=== PATIENT | female | born 1990 | race Caucasian/White ===

== ENCOUNTER 2018-12-20 20:22 | Emergency (ER) | payer SELFPAY ==
[~2018-12-20] VITALS: Ht 165.1 cm; Wt 72.4 kg
[2018-12-20 20:37] VITALS: BP 115/72
[2018-12-20] MEDS ORDERED: DIAZEPAM 5 MG TABLET ONE (20:59)
[2018-12-20] MEDS ORDERED: KETOROLAC 30 MG/1 ML ONE (20:59)
[2018-12-20] MEDS ORDERED: KETOROLAC 30 MG/1 ML IM ONE (21:00)
[2018-12-20] MEDS ORDERED: DIAZEPAM 5 MG TABLET PO ONE (21:00)
== END 2018-12-20 22:42 | disposition home or self-care (01) ==
LOC: ED 22:15
DX: M62.830 Muscle spasm of back (principal)
CPT/HCPCS: 72050; 96372; 99283; J1885

== ENCOUNTER 2019-02-14 09:07 | Emergency (ER) | payer OTHER ==
[~2019-02-14] VITALS: Ht 177.8 cm; Wt 100.0 kg
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
--- NOTE | 2019-02-14 09:40 | NUR ---
REMAINS LETHARGIC SATS TO 100 ON RA
--- NOTE | 2019-02-14 11:18 | NUR ---
RECEIVED REPORT FROM DOMI COKER. ASSUMED CARE OF PATIENT. PT SLEEPING, VSS. NO ACUTE DISTRESS.
--- NOTE | 2019-02-14 12:38 | NUR ---
PT AROUSABLE TO VOICE, FALLS BACK TO SLEEP WITHIN 3-5 SEC AND HAS TO BE REAROUSED. VSS. WARM BLANKET PROVIDED.
--- NOTE | 2019-02-14 12:43 | NUR ---
BREAK RN FOR PRIMARY RN HAILY. CARE ASSUMED. PT SLEEPING, RESP REGULAR, EVEN, UNLABORED, EQUAL CHEST RISE, PULSE OX 99% RA. FALL PRECAUTIONS IN PLACE. SIDE RAILS UPX2. VSS. CALL LIGHT IN REACH.
--- NOTE | 2019-02-14 13:17 | NUR ---
BREAK RN. REPORT AND CARE TO PRIMARY DOMI JOHANSEN AT THIS TIME.
[2019-02-14 14:35] VITALS: BP 116/77
--- NOTE | 2019-02-14 14:36 | NUR ---
PT CONTINUES TO SLEEP, IS AROUSABLE TO LIGHT TACTILE STIMULATION BUT FALLS BACK TO SLEEP WITHIN 3-5 SECS. VSS. NO ACUTE DISTRESS.
== END 2019-02-14 15:40 | disposition left against medical advice (07) ==
LOC: ED 12:52
DX: F11.129 Opioid abuse with intoxication, unspecified (principal); F17.200 Nicotine dependence, unspecified, uncomplicated
CPT/HCPCS: 99283

== ENCOUNTER 2019-06-01 10:17 | Emergency (ER) | payer OTHER ==
[~2019-06-01] VITALS: Ht 165.1 cm; Wt 71.3 kg
[2019-06-01 10:23] VITALS: BP 130/79
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
--- NOTE | 2019-06-01 11:50 | NUR ---
PT AMBULATED TO BR WITHOUT DIFFICULTY. INSTRUCTED ON CLEAN CATCH URINE SAMPLE.
--- NOTE | 2019-06-01 11:57 | NUR ---
AMBULATORY TO & FROM [facility] W/OUT INCIDENT, ACCOMPANIED BY THIS RN, PT'S GAIT STEADY. SMALL AMOUNT CLOUDY YELLOW URINE SPECIMEN PROVIDED BY PT. PT C/O FREQUENCY, VOIDING SMALL AMOUNTS. DENIED URINARY PAIN/BURNING. SPECIMEN WILL BE WALKED TO LAB.
[2019-06-01 12:14] LABS: HCG UR SG 1.028 (1.003-1.030)
[2019-06-01 12:18] LABS: MICROSCOPIC INDICATED
[2019-06-01 12:19] LABS: CULTURE INDICATED? YES
--- NOTE | 2019-06-01 12:30 | NUR ---
GUY/TIFF TEAM AT .
--- NOTE | 2019-06-01 13:21 | NUR ---
D/C INSTRUCTIONS PROVIDED TO PT. PT TO GO FOR SART EXAM WITH [facility].
--- NOTE | 2019-06-01 13:38 | NUR ---
SART TEAM NOT ABLE TO SEE PATIENT UNTIL 2:30PM. [facility] TO TAKE PATIENT AT THAT TIME.
== END 2019-06-01 14:04 | disposition home or self-care (01) ==
LOC: ED 10:59
DX: N30.00 Acute cystitis without hematuria (principal); T76.21XA Adult sexual abuse, suspected, initial encounter; F11.20 Opioid dependence, uncomplicated; F17.200 Nicotine dependence, unspecified, uncomplicated; J45.909 Unspecified asthma, uncomplicated
CPT/HCPCS: 81001; 81025; 87086; 99283

== ENCOUNTER 2019-09-25 23:25 | Emergency (ER) | payer SELFPAY ==
[~2019-09-25] VITALS: Ht 165.1 cm; Wt 70.7 kg
[2019-09-25 23:27] VITALS: BP 141/100
[2019-09-25] MEDS ORDERED: LIDOCAINE 1%-EPI 1:100K, 20ML ONE (23:56)
[2019-09-26] MEDS ORDERED: LIDOCAINE 1%-EPI 1:100K, 20ML SQ ONE
--- NOTE | 2019-09-26 00:09 | NUR ---
Patient into room and into hospital gown. Midlevel provider to bedside to assess patient. Patient is alert, oriented, answers questions clearly and concisely. Comes into hospital for complaints of multiple enlarged reddened tender to the touch areas on her skin which she reports were injection sites this week. RN returned with irrigation and debridement kit. Awaiting for provider.
--- NOTE | 2019-09-26 00:35 | NUR ---
RN with provider to bedside, patient extremely anxious agreeable for moments then disagreeable. Patient tolerated poorly bilateral upper medial arm irrigation and debridement sites but refusing a third drainage of a possible leg abscess. Patient kicking to air, yelling and crying preceding lidocaine and after lidocaine administration. Left abscess packed with 1/4" iodoform gauze and covered with large bandaid. Second site patient ceased procedure after initial incision not allowing further adminstration of numbing agent or expressing of abscess. Patient handed gauze and encouraged to proceed on her own. Awaiting for disposition.
== END 2019-09-26 00:59 | disposition home or self-care (01) ==
LOC: ED 09-26 00:30
DX: L03.114 Cellulitis of left upper limb (principal); L03.113 Cellulitis of right upper limb; F11.20 Opioid dependence, uncomplicated; Z72.9 Problem related to lifestyle, unspecified
CPT/HCPCS: 10061; 99284

== ENCOUNTER 2019-10-27 13:29 | Emergency (ER) | payer SELFPAY ==
[~2019-10-27] VITALS: Ht 162.6 cm; Wt 73.7 kg
--- NOTE | 2019-10-27 13:59 | NUR ---
PT C/O JAVED FOOT PAIN X 1 WEEK. BOTH FEET ARE +ERRYTHEMA AND EDEMA. PT WITH CURRENT HX OF IV HEROINE USE BUT DENIES ANY USE OF HER FOOT VIENS. PT STATES SHE IS READY TO GET HELP AND WANTS TO GO HOME TO HER MOTHER WHO LIVES IN [place]. PT STATES SHE HAS MEANS TO CONTACT HER MOTHER BUT IS UNSURE IF HER MOTHER HAS A WAY TO GET HER HOME RIGHT NOW. CALL LIGHT W/I REACH, POC DISCUSSED AND QUESTIONS ANSWERED.
[2019-10-27] MEDS ORDERED: KETOROLAC 30 MG/1 ML IM ONE (14:00)
[2019-10-27] MEDS ORDERED: SULFAMETH./TRIMETHOPRIM DS 800MG/160MG TABLET PO ONE (14:00)
[2019-10-27] MEDS ORDERED: ONDANSETRON ODT 4 MG PO ONE (14:00)
[2019-10-27] MEDS ORDERED: CEFTRIAXONE 1,000 MG IM ONE (14:00)
[2019-10-27] MEDS ORDERED: CEFTRIAXONE 1,000 MG ONE (14:07)
[2019-10-27] MEDS ORDERED: LIDOCAINE-MPF 1%, 2ML ONE (14:07)
[2019-10-27] MEDS ORDERED: KETOROLAC 30 MG/1 ML ONE (14:07)
[2019-10-27] MEDS ORDERED: SULFAMETH./TRIMETHOPRIM DS 800MG/160MG TABLET ONE (14:07)
[2019-10-27] MEDS ORDERED: ONDANSETRON ODT 4 MG ONE (14:07)
--- NOTE | 2019-10-27 14:20 | NUR ---
PT MEDICATED PER EMAR.
[2019-10-27 14:23] VITALS: BP 108/73
--- NOTE | 2019-10-27 14:36 | NUR ---
ALL TESTS RESULTED. PT IS UP FOR RECHECK AT THIS TIME.
--- NOTE | 2019-10-27 15:34 | NUR ---
Patient given discharge instructions and they have confirmed that they understand the instructions. Patient ambulatory with steady gait.
== END 2019-10-27 15:35 | disposition home or self-care (01) ==
LOC: ED 14:55
DX: L03.115 Cellulitis of right lower limb (principal); L03.116 Cellulitis of left lower limb; J45.909 Unspecified asthma, uncomplicated; Z98.51 Tubal ligation status
CPT/HCPCS: 73630; 93970; 96372; 99284; J0696; J1885; Q0162

== ENCOUNTER 2019-11-27 08:59 | Emergency (ER) | payer OTHER ==
[~2019-11-27] VITALS: Ht 165.1 cm; Wt 69.7 kg
[2019-11-27] MEDS ORDERED: SODIUM CHLORIDE FLUSH 10ML SYR IVF ONE (10:00)
[2019-11-27] MEDS ORDERED: VANCOMYCIN 1,400 MG in SODIUM CHLORIDE 0.9% 250 ML IV ONE (10:00)
[2019-11-27] MEDS ORDERED: VANCOMYCIN PER PHARMACY MC ONE (10:00)
[2019-11-27] MEDS ORDERED: SODIUM CHLORIDE 0.9% 1,000ML IVBOLUS ONE (10:00)
[2019-11-27] MEDS ORDERED: LIDOCAINE-MPF 1%, 5ML ONE (10:11)
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
--- NOTE | 2019-11-27 10:26 | NUR ---
DELAY IN CARE, PT WITH DIFFICULT ACCESS D/T MULTIPLE ABCESSES AND HX IV DRUG USE. US GUIDED NEEDED TO OBTAIN ACCESS. AWAITING LAB TO DRAW SECOND BC SET/LABS TO ADMIN IV ABX
--- NOTE | 2019-11-27 10:42 | NUR ---
PT TO MRI AT THIS TIME
[2019-11-27] MEDS ORDERED: GADOTERATE 7.5 MMOL/15 ML SYR ONE (11:15)
[2019-11-27 11:36] VITALS: BP 109/67
--- NOTE | 2019-11-27 11:37 | NUR ---
PT BACK FROM MRI, REFUSING LABS AT THIS TIME. SPOKE WITH PT REGARDING POC AND NEED FOR LABS TO TREAT HER APPROPRIATELY. PT NOW AGREEABLE TO HAVE LABS DRAWN. DANIEL UPDATED ON DELAY
[2019-11-27 11:55] LABS: BASOPHILS # (AUTO) 0.04 x10^3/uL (0-0.1); BASOPHILS % (AUTO) 0 % (0-1); EOSINOPHILS # (AUTO) 0.21 x10^3/uL (0-0.4); EOSINOPHILS % (AUTO) 2 % (1-7); LYMPHOCYTES # (AUTO) 1.57 x10^3/uL (1-3.4); LYMPHOCYTES % (AUTO) 17 % (22-44); MD NO; MEAN CORPUSCULAR HEMOGLOBIN 27.7 pg (27.0-34.8); MEAN CORPUSCULAR VOLUME 86.5 fL (80-100); MONOCYTES # (AUTO) 0.48 x10^3/uL (0.2-0.8); MONOCYTES % (AUTO) 5 % (2-9); NEUTROPHILS # (AUTO) 6.78 x10^3/uL (1.8-6.8); NEUTROPHILS % (AUTO) 75 % (42-75); PLATELET COUNT 289 x10^3/uL (130-400); RED BLOOD COUNT 4.38 x10^6/uL (3.82-5.3)
[2019-11-27 11:56] LABS: HCT (SEDRATE) 38.1 % (34.6-47.8)
[2019-11-27 12:05] LABS: ALANINE AMINOTRANSFERASE 166 U/L (12-78); ALBUMIN 2.8 g/dL (3.4-5.0); ANION GAP 3 mmol/L (5-15); CALCIUM 8.3 mg/dL (8.5-10.1); CHLORIDE 105 mmol/L (98-107); CREATININE 0.55 mg/dL (0.55-1.02)
[2019-11-27 12:12] LABS: ALKALINE PHOSPHATASE 200 U/L (45-117); BILIRUBIN,TOTAL 1.1 mg/dL (0.2-1.0); TOTAL PROTEIN 6.5 g/dL (6.4-8.2)
== END 2019-11-27 13:49 | disposition home or self-care (01) ==
LOC: ED 09:22
DX: S16.1XXA Strain of muscle, fascia and tendon at neck level, initial encounter (principal); L02.413 Cutaneous abscess of right upper limb; L02.414 Cutaneous abscess of left upper limb; L03.113 Cellulitis of right upper limb; L03.114 Cellulitis of left upper limb; F11.10 Opioid abuse, uncomplicated; F17.290 Nicotine dependence, other tobacco product, uncomplicated; X58.XXXA Exposure to other specified factors, initial encounter; Y93.89 Activity, other specified; Y92.89 Other specified places as the place of occurrence of the external cause; Y99.8 Other external cause status
CPT/HCPCS: 10060; 36415; 72156; 80053; 85025; 85651; 86140; 87040; 96365; 99285; A9575; J3370; J7030; J7050

== ENCOUNTER 2019-11-30 13:21 | Emergency (ER) | payer OTHER ==
[~2019-11-30] VITALS: Ht 165.1 cm; Wt 70.4 kg
[2019-11-30 13:26] VITALS: BP 117/77
--- NOTE | 2019-11-30 14:46 | NUR ---
PATIENT IN THE DEPARTMENT. ASSESSMENT COMPLETED. EXPLAINED EXPECTATIONS WITHIN THE NEXT FEW MINUTES. AWAITING MD TO SEE.
--- NOTE | 2019-11-30 15:21 | NUR ---
TASK RN: PT WITH DRESSING TO LEFT ARM. NO IV TO DC. REVIEWED DC INSTRUCTIONS WITH PT. UNDERSTANDING VERBALIZED. PT LEFT AMB, GAIT STEADY.
== END 2019-11-30 15:23 | disposition home or self-care (01) ==
LOC: ED 15:15
DX: L02.414 Cutaneous abscess of left upper limb (principal); J45.909 Unspecified asthma, uncomplicated
CPT/HCPCS: 99281

== ENCOUNTER 2020-03-12 10:12 | Emergency (ER) | payer SELFPAY ==
[~2020-03-12] VITALS: Ht 165.1 cm; Wt 68.4 kg
--- NOTE | 2020-03-12 10:57 | NUR ---
MANAGER SOCIAL RESPONSIBILITY: PT WALKED BACK FROM LOBBY TO ROOM AT THIS TIME.
[2020-03-12 11:13] VITALS: BP 114/70
[2020-03-12] MEDS ORDERED: LIDOCAINE-MPF 1%, 5ML ONE (11:19)
[2020-03-12] MEDS ORDERED: LORazepam 1MG TABLET ONE (11:19)
[2020-03-12] MEDS ORDERED: KETOROLAC 30 MG/1 ML ONE (11:19)
[2020-03-12 11:25] LABS: MICROSCOPIC INDICATED
--- NOTE | 2020-03-12 11:25 | NUR ---
PROVIDER AWARE I&D IS SET UP. PROVIDER WAITING FOR ATIVAN TO RELAX PT, PRIOR TO PROCEDURE.
--- NOTE | 2020-03-12 11:26 | NUR ---
MEDS ADMIN PER OCT. I&D SET UP BY TECH.
[2020-03-12] MEDS ORDERED: KETOROLAC 30 MG/1 ML IM ONE (11:30)
[2020-03-12] MEDS ORDERED: LIDOCAINE-MPF 1%, 5ML INFIL ONE (11:30)
[2020-03-12] MEDS ORDERED: LORazepam 1MG TABLET PO ONE (11:30)
--- NOTE | 2020-03-12 12:13 | NUR ---
PROVIDER AT BEDSIDE FOR I&D.
== END 2020-03-12 12:36 | disposition home or self-care (01) ==
LOC: ED 12:03
DX: L02.415 Cutaneous abscess of right lower limb (principal); N30.00 Acute cystitis without hematuria; F17.200 Nicotine dependence, unspecified, uncomplicated; J45.909 Unspecified asthma, uncomplicated; Z98.51 Tubal ligation status
CPT/HCPCS: 81001; 87077; 87086; 96372; 99283; J1885; 87186

== ENCOUNTER 2020-07-12 19:18 | Emergency (ER) | payer MEDICAID, OTHER ==
[~2020-07-12] VITALS: Ht 157.5 cm; Wt 67.2 kg
[2020-07-12 19:42] LABS: BASOPHILS % (AUTO) 1 % (0-1); EOSINOPHILS % (AUTO) 1 % (1-7); LYMPHOCYTES % (AUTO) 19 % (22-44); MD NO; MEAN CORPUSCULAR HGB CONC 32.7 g/dL (32.4-35.8); MEAN PLATELET VOLUME 7.8 fL (7.4-10.4); MONOCYTES % (AUTO) 5 % (2-9); NEUTROPHILS % (AUTO) 74 % (42-75); PLATELET COUNT 272 x10^3/uL (130-400); RED BLOOD COUNT 5.06 x10^6/uL (3.82-5.3); RED CELL DISTRIBUTION WIDTH 14.8 % (9.6-15.2)
[2020-07-12 19:51] LABS: ALANINE AMINOTRANSFERASE 185 U/L (12-78); ALBUMIN 3.4 g/dL (3.4-5.0); ANION GAP 4 mmol/L (5-15); CHLORIDE 103 mmol/L (98-107); CREATININE 0.76 mg/dL (0.55-1.02)
[2020-07-12 19:56] LABS: ALKALINE PHOSPHATASE 129 U/L (45-117); BILIRUBIN,TOTAL 0.3 mg/dL (0.2-1.0); TOTAL PROTEIN 7.4 g/dL (6.4-8.2)
--- NOTE | 2020-07-12 20:34 | NUR ---
pt to room from lobby
--- NOTE | 2020-07-12 21:04 | NUR ---
PT CAME IN CO OF NVD AND ABD PAIN X 3 WEEKS. PT SAID "TODAY I WAS JUST SICK OF THROWING UP SO I HAD TO COME IN. JAYJAY BEEN TRYING TO GET HEROIN". LABS DRAWN. US COMPLETE. PT RESTING IN [facility]. FRIEND IS BEDSIDE. WARM BLANKET PROVIDED
[2020-07-12 21:09] VITALS: BP 121/70
[2020-07-12 21:42] LABS: MICROSCOPIC INDICATED
--- NOTE | 2020-07-12 21:59 | NUR ---
REPORT RECEIVED FROM DOMI HOLLEY FOR TRANSFER OF PATIENT CARE.
--- NOTE | 2020-07-12 22:11 | NUR ---
PATIENT RESTING IN GURNEY WITH EYES CLOSED, RESP EVEN AND UNLABORED, VSS, CALL LIGHT WITHIN REACH.
--- NOTE | 2020-07-12 22:52 | NUR ---
WENT TO DISCHARGE PATIENT, PATIENT AND FRIEND REQUESTING TO SPEAK TO THE PROVIDER AGAIN. STEPHANIE HUDSON AT BEDSIDE DISCUSSING POC.
--- NOTE | 2020-07-12 22:57 | NUR ---
Patient given discharge instructions and presctiption and they have confirmed that they understand the instructions. Patient stable and ambulatory with steady gait from ED to private vehicle.
== END 2020-07-12 22:58 | disposition home or self-care (01) ==
LOC: ED 21:00
DX: R11.2 Nausea with vomiting, unspecified (principal); R19.7 Diarrhea, unspecified; R94.5 Abnormal results of liver function studies; J45.909 Unspecified asthma, uncomplicated
CPT/HCPCS: 36415; 76700; 80053; 81001; 83690; 84703; 85025; 87086; 99284

== ENCOUNTER 2021-03-20 07:58 | Emergency (ER) | payer MEDICAID, OTHER ==
[~2021-03-20] VITALS: Ht 165.1 cm; Wt 69.7 kg
[2021-03-20 08:01] VITALS: BP 106/71
--- NOTE | 2021-03-20 08:52 | NUR ---
WARDROBE STYLIST: PT TO ROOM FORM LOBBY
== END 2021-03-20 09:54 | disposition home or self-care (01) ==
LOC: ED 09:37
DX: L02.414 Cutaneous abscess of left upper limb (principal); L02.413 Cutaneous abscess of right upper limb; J45.909 Unspecified asthma, uncomplicated
CPT/HCPCS: 82962; 99283